=== PATIENT | male | born 1930 | race Caucasian/White ===

== ENCOUNTER 2018-02-02 16:21 | Emergency (ER) | payer MEDICARE, OTHER ==
--- NOTE | 2018-02-02 17:15 | UC ---
General HPI - HPI Summary HPI Summary: pt has diarrhea(watery) for about 3-4 days last week. it stopped a few days ago. he did note it to be black at one point but that has resolved now. he is now c/o feeling weak and " I have a hard time keeping anything down". he is also c/o pain and points to his upper abdomen. he did fall a couple of days ago but only got a bruised arm. he has a remote hx of alcohol abuse and tobacco use but none of either now. his family notes he called then to go to the hospital. they note he never wants to go so he must be ill. - History of Current Complaint Chief Complaint: UCGI Stated Complaint: CHILLS/FEVER/UPSET STOMACH Time Seen by Provider: 02/02/18 17:05 Hx Obtained From: Patient, Family/Online Marketing Director Onset/Duration: Gradual Onset Timing: Constant Pain Intensity: 0 Aggravating: nothing Alleviating: nothing Associated Signs & Symptoms: Positive: Abdominal Pain, Diarrhea, Nausea, Weakness. Negative: Back Pain, Cough, Chest Pain, Dysuria, Fever, Headache, Hematemesis - Allergy/Home Medications Allergies/Adverse Reactions: Allergies Allergy/AdvReac Type Severity Reaction Status Date / Time lactose Allergy GI Upset Verified 02/02/18 16:52 Home Medications: Home Medications Aspirin 81 mg CHEW TAB* [Aspirin Low Dose TAB*] 81 mg PO DAILY 02/02/18 [ History Confirmed 02/02/18] Calcipotriene 1 applic TOPICAL DAILY 02/02/18 [History Confirmed 02/02/18] Carboxymethylcellulos 1% OPTH* [Celluvisc 1% OPTH*] 1 drop BOTH EYES QID [History Confirmed 02/02/18] Finasteride TAB* [Proscar TAB*] 5 mg PO DAILY 02/02/18 [History Confirmed ] Fluocinonide 0.05% CM (NF) [Lidex 0.05% CREAM (NF)] 1 applic TOPICAL DAILY 02/02 [History Confirmed 02/02/18] Levothyroxine TAB* [Synthroid TAB*] 75 mcg PO 0800 02/02/18 [History Confirmed 02/02/18] Multivitamins/Minerals TAB* [Theragran/minerals TAB*] 1 tab PO DAILY 02/02/18 [ History Confirmed 02/02/18] Omeprazole CAP* [Prilosec CAP* 20 MG] 20 mg PO DAILY 02/02/18 [History Confirmed 02/02/18] Simvastatin (NF) [Zocor (NF)] 40 mg PO 1700 02/02/18 [History Confirmed 02/02/18 ] Tamsulosin CAP* [Flomax CAP*] 0.4 mg PO DAILY 02/02/18 [History Confirmed ] traZODone TAB* [Desyrel TAB*] 100 mg PO BEDTIME 02/02/18 [History Confirmed ] PMH/Surg Hx/FS Hx/Imm Hx - Additional Past Medical History Additional PMH: BPH, sleep disturbance Endocrine History: Thyroid Disease, Dyslipidemia GI/ History: Gastroesophageal Reflux - Surgical History Surgical History: Yes Surgery Procedure, Year, and Place: 1987 abd surgery unknown what. Bilat angioplasty legs 2013 - Family History Known Family History: Positive: Unknown - Social History Occupation: Retired Lives: Alone Alcohol Use: None Alcohol Amount: previous ETOH BABUSE, CLEAN X 30 YRS Substance Use Type: None Smoking Status (MU): Former Smoker Amount Used/How Often: 3 ppd x 30 yrs When Did the Patient Quit Smoking/Using Tobacco: quit 30 years about 1989 Review of Systems Constitutional: Fever - subjective, Chills Gastrointestinal: Abdominal Pain, Diarrhea, Nausea Motor: Weakness Is Patient Immunocompromised?: No All Other Systems Reviewed And Are Negative: Yes Physical Exam Triage Information Reviewed: Yes Appearance: Cachectic Vital Signs: Initial Vital Signs Temp 98.5 F 02/02/18 16:37 Pulse 84 02/02/18 16:37 Resp 16 02/02/18 16:37 BP 116/74 02/02/18 16:37 Pulse Ox 96 02/02/18 16:37 Vital Signs Reviewed: Yes Eyes: Positive: Conjunctiva Clear, Other: - s/p cataract surgery ENT: Positive: TMs normal. Negative: Pharyngeal erythema, Nasal congestion, Nasal drainage Neck: Positive: Supple, Nontender, No Lymphadenopathy Respiratory: Positive: Lungs clear, Normal breath sounds Cardiovascular: Positive: RRR, No Murmur Abdomen Description: Positive: Other: - soft with tenderness across upper abdomen worse at epigastrum. no over mass.. Negative: CVA Tenderness (R), CVA Tenderness (L), Distended, Guarding Bowel Sounds: Positive: Hyperactive Neurological: Positive: Alert Psychological: Positive: Age Appropriate Behavior Skin Exam: Other - pink, warm, tents Course/Dx - Course Course Of Treatment: pt is frail, weak and has abdominal pain. he requires a higher level of care. his differential includes but is not limited to GI bleed, hepatic/panreatic pathology and dehydration. [facility] called, report given to Dr Mcneil. advised of upper abdominal pain, weakness and diarrhea x 3-4 days last week which was black at one point but not now. Niece drive pt via car. - Differential Dx - Multi-Symptom Provider Diagnoses: upper abdominal pain. weakness Discharge - Sign-Out/Discharge Documenting (check all that apply): Discharge - Discharge Plan Condition: Stable Disposition: TRANS HIGHER LVL OF CARE FAC Referrals: Junior Jackson MD [Primary Care Provider] - Additional Instructions: GO DIRECTLY TO THE [facility] FROM HERE DISCUSSED - Billing Disposition and Condition Condition: STABLE Disposition: EMTALA
== END 2018-02-02 17:29 | disposition home or self-care (01) ==
LOC: UCCORT 16:21
DX: R10.10 Upper abdominal pain, unspecified (principal); R53.1 Weakness
CPT/HCPCS: 99212; G0463